=== PATIENT | female | born 1985 | race Caucasian/White ===

== ENCOUNTER 2021-07-11 17:20 | Emergency (ER) | payer MEDICAID ==
[~2021-07-11] VITALS: Ht 167.6 cm; Wt 90.0 kg
[~2021-07-11 17:20] MED LIST: METO-292 PO
[2021-07-11 17:32] VITALS: BP 143/77
== END 2021-07-11 19:41 | disposition home or self-care (01) ==
LOC: ER 17:20
DX: S96.812A Strain of other specified muscles and tendons at ankle and foot level, left foot, initial encounter (principal); M25.572 Pain in left ankle and joints of left foot; M79.672 Pain in left foot; Z79.899 Other long term (current) drug therapy; W01.0XXA Fall on same level from slipping, tripping and stumbling without subsequent striking against object, initial encounter; Y93.89 Activity, other specified; Y92.89 Other specified places as the place of occurrence of the external cause; Y99.8 Other external cause status
CPT/HCPCS: 73610; 73630; 99284

== ENCOUNTER 2024-07-07 09:42 | Emergency (ER) | payer MEDICAID, OTHER ==
[~2024-07-07] VITALS: Ht 167.6 cm; Wt 87.7 kg
[2024-07-07 09:43] VITALS: BP 140/77; PULSE 99; O2SAT 98
[2024-07-07 09:57] VITALS: RESP 16
[2024-07-07] MEDS: aspirin 325mg tablet PO ONE (10:32)
[2024-07-07] MEDS: famotidine 20mg tablet PO ONE (10:32)
[2024-07-07] MEDS: predniSONE 20 mg tablet PO ONE (10:33)
[2024-07-07] MEDS ORDERED: PRED20TA PO (10:41)
[2024-07-07] MEDS ORDERED: FAMO40TA73 PO (10:41)
[2024-07-07 11:04] VITALS: TEMP 98.2
== END 2024-07-07 11:06 | disposition home or self-care (01) ==
LOC: ER 09:43
DX: T78.49XA Other allergy, initial encounter (principal); L50.9 Urticaria, unspecified; I49.9 Cardiac arrhythmia, unspecified; X58.XXXA Exposure to other specified factors, initial encounter
CPT/HCPCS: 93005; 99284; J7512